=== PATIENT | male | born 1990 | race Caucasian/White ===

== ENCOUNTER 2018-02-20 09:15 | Emergency (ER) | payer OTHER, MEDICAID ==
[2018-02-20] MEDS ORDERED: Lidocaine 1% 20 ML MDV INJECT ONE (09:42)
[2018-02-20] MEDS ORDERED: Bacitracin Oint 1 GM U/D Packet TOP ONE (09:43)
--- NOTE | 2018-02-20 09:44 | EDM.PDOC ---
ED HPI GENERAL MEDICAL PROBLEM - General Chief Complaint: Laceration Stated Complaint: LEFT PALM LACERATION Time Seen by Provider: 02/20/18 09:44 Source of Information: Reports: Patient History Limitations: Reports: No Limitations - History of Present Illness INITIAL COMMENTS - FREE TEXT/NARRATIVE: pt cut the palm of his left hand on glass from the gargbage. Onset: Today Duration: Hour(s): Location: Reports: Upper Extremity, Left, Other (Pt has a 1.5 inch laceration in the palm of the left hand. He has normal sensation around the laceration. ) Associated Symptoms: Reports: No Other Symptoms Left Hand Pain Score (Numeric/FACES): 4 - Related Data Allergies Allergy/AdvReac Type Severity Reaction Status Date / Time No Known Allergies Allergy Verified 02/20/18 09:35 Home Meds: Home Meds NK [No Known Home Meds] 02/20/18 [History] Past Medical History HEENT History: Reports: Impaired Vision Neurological History: Reports: Concussion - Infectious Disease History Infectious Disease History: Reports: Chicken Pox - Past Surgical History HEENT Surgical History: Reports: Tonsillectomy Social & Family History - Tobacco Use Smoking Status *Q: Never Smoker Second Hand Smoke Exposure: No - Caffeine Use Caffeine Use: Reports: Coffee, Energy Drinks, Soda - Alcohol Use Days Per Week of Alcohol Use: 2 Number of Drinks Per Day: 3 Total Drinks Per Week: 6 - Recreational Drug Use Recreational Drug Use: No ED ROS GENERAL - Review of Systems Review Of Systems: See Below Constitutional: Reports: No Symptoms HEENT: Reports: No Symptoms Respiratory: Reports: No Symptoms Cardiovascular: Reports: No Symptoms Endocrine: Reports: No Symptoms GI/Abdominal: Reports: No Symptoms : Reports: No Symptoms Musculoskeletal: Reports: No Symptoms Skin: Reports: Other ( 1.5 inch laceration in the palm of the left hand. ) ED EXAM, SKIN/RASH Exam: See Below Text/Narrative:: pt arrived with a 1.5 inch laceration chi the palm of the left hand Skin: Other ( pt has a 1.5 inch laceration in tghe palm of the left hand deep to the subq. ) Course - Vital Signs Last Recorded V/S: Last Vital Signs Temp 35.7 C 02/20/18 09:41 Pulse 71 02/20/18 09:41 Resp 16 02/20/18 09:41 BP 123/75 02/20/18 09:41 Pulse Ox 99 02/20/18 09:41 - Orders/Labs/Meds Meds: Medications Discontinued Medications Generic Name Dose Route Start Last Admin Trade Name Remigio PRN Reason Stop Dose Admin Bacitracin 1 dose 02/20/18 09:43 Bacitracin Oint 1 Gm TOP 02/20/18 09:44 ONETIME ONE Lidocaine HCl 20 ml 02/20/18 09:42 Xylocaine 1% INJECT 02/20/18 09:43 ONETIME ONE - Re-Assessments/Exams Free Text/Narrative Re-Assessment/Exam: 02/20/18 10:04 area was cleansed well and infiltrated with lidocaine. The wound was closed with 5-0 prolene. and chromic 5-0 in a layered manner. The wound was dressed with bacatracin and a pressure dressing. Departure - Departure Time of Disposition: 10:06 Disposition: Home, Self-Care 01 Condition: Fair Clinical Impression: Laceration of left hand - Discharge Information Referrals: PCP,None [Primary Care Provider] - Forms: ED Department Discharge Care Plan Goals: keep dry, no further ointnments, keep covered, sr in 7-8 days.
== END 2018-02-20 11:04 | disposition home or self-care (01) ==
LOC: JP.ED 09:15
DX: S61.412A Laceration without foreign body of left hand, initial encounter (principal); W25.XXXA Contact with sharp glass, initial encounter
CPT/HCPCS: 12042; 99283-25